=== PATIENT | male | born 1965 | race Caucasian/White ===

== ENCOUNTER 2016-12-07 09:12 | Inpatient (IN) | payer OTHER ==
[~2016-12-07] VITALS: Ht 175.3 cm; Wt 74.0 kg
[~2016-12-07 09:12] MED LIST: FLEXERIL10 MG PO; FLOMAX0.4 MG PO; MOTRIN800 MG PO; NAPROSYN500 MG PO; VICODIN 5-3001 EACH PO
[2016-12-07 09:41] LABS: HEMATOCRIT 44.7 % (38.0-50.0); MCH 27.8 PG (29.0-34.0); MCHC 33.3 G/DL (30.0-36.0); MCV 83.4 FL (86-99); MEAN PLAT.VOLUME 8.9 uM^3 (9.0-12.4); PLATELET COUNT 310 K/uL (156-360); RBC DIS.WIDTH-CV 13.1 % (11.8-14.6); RBC DIS.WIDTH-SD 39.6 % (39-53); RED BLOOD COUNT 5.36 M/uL (4.00-5.50); WHITE BLOOD COUNT 7.4 K/uL (4.1-10.2)
[2016-12-07 09:45] LABS: PROTHROMBIN TIME 11.1 SEC (10.2-12.9)
[2016-12-07 09:49] LABS: CHLORIDE 107 mEq/L (99-109); POTASSIUM 4.5 mEq/L (3.7-5.4); SODIUM 142 mEq/L (136-147)
[2016-12-07 09:51] LABS: GLUCOSE 163 mg/dL (70-99)
[2016-12-07 09:52] LABS: ANION GAP 10 MEQ/L (2-14)
[2016-12-07 09:53] LABS: TOTAL BILIRUBIN 0.7 mg/dL (0.0-1.0)
[2016-12-07 09:54] LABS: ALKALINE PHOSPHATASE 65 IU/L (3-129)
[2016-12-07 09:55] LABS: GFR ESTIMATE (CALCULATED) > 59 mL/min/
[2016-12-07 09:56] LABS: UREA NITROGEN (BUN) 17 mg/dL (9-23)
[2016-12-07 10:01] LABS: TROP-I INTERPRETATION NEGATIVE; TROPONIN-I < 0.01 ng/mL (0.0-0.30)
[2016-12-07 14:08] VITALS: BP 135/80
[2016-12-07 19:37] VITALS: BP 150/88
[2016-12-07 22:11] VITALS: BP 178/87
[2016-12-08] VITALS (7 sets, daily range): BP systolic 135–183; BP diastolic 80–110
[2016-12-08 07:28] LABS: HEMATOCRIT 45.1 % (38.0-50.0); MCH 28.3 PG (29.0-34.0); MCHC 33.9 G/DL (30.0-36.0); MCV 83.4 FL (86-99); MEAN PLAT.VOLUME 9.4 uM^3 (9.0-12.4); PLATELET COUNT 301 K/uL (156-360); RBC DIS.WIDTH-CV 13.2 % (11.8-14.6); RED BLOOD COUNT 5.41 M/uL (4.00-5.50); WHITE BLOOD COUNT 16.4 K/uL (4.1-10.2)
[2016-12-09] VITALS (9 sets, daily range): BP systolic 140–210; BP diastolic 90–119
[2016-12-09 05:50] LABS: HEMATOCRIT 41.3 % (38.0-50.0); MCH 29.3 PG (29.0-34.0); MCHC 34.9 G/DL (30.0-36.0); MCV 84.1 FL (86-99); MEAN PLAT.VOLUME 9.3 uM^3 (9.0-12.4); PLATELET COUNT 265 K/uL (156-360); RBC DIS.WIDTH-CV 13.4 % (11.8-14.6); RBC DIS.WIDTH-SD 41.4 % (39-53); RED BLOOD COUNT 4.91 M/uL (4.00-5.50); WHITE BLOOD COUNT 14.4 K/uL (4.1-10.2)
[2016-12-09 06:12] LABS: ANION GAP 9 MEQ/L (2-14); CHLORIDE 97 MEQ/L (99-109); GFR ESTIMATE (CALCULATED) > 59 mL/min/; POTASSIUM 4.2 MEQ/L (3.7-5.4); SAMPLE HEMOLYSIS CHECK 0; SAMPLE ICTERIC CHECK 0; SAMPLE LIPEMIA CHECK 0; SODIUM 135 MEQ/L (136-147); UREA NITROGEN (BUN) 12 mg/dL (9-23)
[2016-12-09 06:14] LABS: GLUCOSE 111 mg/dL (70-99)
[2016-12-09 17:33] LABS: HEMATOCRIT 43.4 % (38.0-50.0); MCH 28.1 PG (29.0-34.0); MCHC 34.3 G/DL (30.0-36.0); MCV 81.9 FL (86-99); PLATELET COUNT 299 K/uL (156-360); RBC DIS.WIDTH-CV 13.2 % (11.8-14.6); RBC DIS.WIDTH-SD 39.4 % (39-53); WHITE BLOOD COUNT 16.3 K/uL (4.1-10.2)
[2016-12-09 18:04] LABS: ALKALINE PHOSPHATASE 64 IU/L (3-129); ANION GAP 11 MEQ/L (2-14); CHLORIDE 97 MEQ/L (99-109); GFR ESTIMATE (CALCULATED) > 59 mL/min/; GLUCOSE 101 mg/dL (70-99); POTASSIUM 3.9 MEQ/L (3.7-5.4); SAMPLE HEMOLYSIS CHECK 0; SAMPLE ICTERIC CHECK 0; SAMPLE LIPEMIA CHECK 0; SODIUM 134 MEQ/L (136-147); TOTAL BILIRUBIN 0.5 MG/DL (0.0-1.0); UREA NITROGEN (BUN) 11 mg/dL (9-23)
[2016-12-09 18:07] LABS: TROP-I INTERPRETATION NEGATIVE; TROPONIN-I < 0.01 ng/mL (0.0-0.30)
[2016-12-09 21:01] LABS: Estimated Average Glucose 114 mg/dL (70-123); HEMOGLOBIN A1c (GLYCOHEMOGLOB) 5.6 % HGB (Below 5.7)
[2016-12-10] VITALS (7 sets, daily range): BP systolic 143–180; BP diastolic 81–104
[2016-12-10 07:09] LABS: HEMATOCRIT 42.6 % (38.0-50.0); MCH 27.9 PG (29.0-34.0); MCHC 33.8 G/DL (30.0-36.0); MCV 82.4 FL (86-99); MEAN PLAT.VOLUME 9.3 uM^3 (9.0-12.4); PLATELET COUNT 292 K/uL (156-360); RBC DIS.WIDTH-CV 13.3 % (11.8-14.6); RBC DIS.WIDTH-SD 40.5 % (39-53); RED BLOOD COUNT 5.17 M/uL (4.00-5.50); WHITE BLOOD COUNT 11.6 K/uL (4.1-10.2)
[2016-12-10 07:33] LABS: ALKALINE PHOSPHATASE 58 IU/L (3-129); ANION GAP 11 MEQ/L (2-14); CHLORIDE 98 MEQ/L (99-109); GFR ESTIMATE (CALCULATED) > 59 mL/min/; GLUCOSE 108 mg/dL (70-99); POTASSIUM 3.9 MEQ/L (3.7-5.4); SAMPLE HEMOLYSIS CHECK 0; SAMPLE ICTERIC CHECK 0; SAMPLE LIPEMIA CHECK 0; SODIUM 135 MEQ/L (136-147); TOTAL BILIRUBIN 0.6 MG/DL (0.0-1.0); UREA NITROGEN (BUN) 13 mg/dL (9-23)
[2016-12-10 10:19] LABS: HEMATOCRIT 43.8 % (38.0-50.0); MCH 28.5 PG (29.0-34.0); MCHC 34.7 G/DL (30.0-36.0); MCV 82.2 FL (86-99); MEAN PLAT.VOLUME 9.6 uM^3 (9.0-12.4); PLATELET COUNT 300 K/uL (156-360); RBC DIS.WIDTH-CV 13.3 % (11.8-14.6); RED BLOOD COUNT 5.33 M/uL (4.00-5.50)
[2016-12-10 10:31] LABS: TROP-I INTERPRETATION NEGATIVE; TROPONIN-I 0.02 ng/mL (0.0-0.30)
[2016-12-11 03:32] VITALS: BP 152/88
[2016-12-11 07:15] VITALS: BP 152/108
[2016-12-11 08:00] LABS: HEMATOCRIT 41.4 % (38.0-50.0); MCH 29.1 PG (29.0-34.0); MCHC 35.5 G/DL (30.0-36.0); MCV 81.8 FL (86-99); MEAN PLAT.VOLUME 8.9 uM^3 (9.0-12.4); PLATELET COUNT 300 K/uL (156-360); RBC DIS.WIDTH-CV 13.7 % (11.8-14.6); RBC DIS.WIDTH-SD 40.3 % (39-53); RED BLOOD COUNT 5.06 M/uL (4.00-5.50); WHITE BLOOD COUNT 8.9 K/uL (4.1-10.2)
[2016-12-11 09:13] LABS: ANION GAP 8 MEQ/L (2-14); CHLORIDE 100 MEQ/L (99-109); GFR ESTIMATE (CALCULATED) > 59 mL/min/; GLUCOSE 103 mg/dL (70-99); SAMPLE HEMOLYSIS CHECK 4; SAMPLE ICTERIC CHECK 0; SAMPLE LIPEMIA CHECK 0; SODIUM 134 MEQ/L (136-147); UREA NITROGEN (BUN) 20 mg/dL (9-23)
[2016-12-11 10:47] LABS: POTASSIUM 3.3 MEQ/L (3.7-5.4)
[2016-12-11 16:09] VITALS: BP 140/100
[2016-12-11 19:33] VITALS: BP 194/105
[2016-12-11 20:18] VITALS: BP 160/100
[2016-12-12] VITALS (7 sets, daily range): BP systolic 168–178; BP diastolic 96–108
[2016-12-12 08:56] LABS: HEMATOCRIT 42.7 % (38.0-50.0); MCH 27.8 PG (29.0-34.0); MCHC 34.2 G/DL (30.0-36.0); MCV 81.2 FL (86-99); MEAN PLAT.VOLUME 8.8 uM^3 (9.0-12.4); PLATELET COUNT 316 K/uL (156-360); RBC DIS.WIDTH-CV 13.2 % (11.8-14.6); RED BLOOD COUNT 5.26 M/uL (4.00-5.50); WHITE BLOOD COUNT 8.6 K/uL (4.1-10.2)
[2016-12-12 09:14] LABS: ANION GAP 12 MEQ/L (2-14); CHLORIDE 98 MEQ/L (99-109); POTASSIUM 3.6 MEQ/L (3.7-5.4); SAMPLE HEMOLYSIS CHECK 0; SAMPLE ICTERIC CHECK 0; SAMPLE LIPEMIA CHECK 0; SODIUM 136 MEQ/L (136-147)
[2016-12-12 09:19] LABS: GFR ESTIMATE (CALCULATED) > 59 mL/min/; GLUCOSE 103 mg/dL (70-99); UREA NITROGEN (BUN) 17 mg/dL (9-23)
[2016-12-12] MEDS ORDERED: PERCOCET 5/31 TABLET PO (12:09)
[2016-12-12] MEDS ORDERED: LISINOPRIL20 MG PO (13:40)
[2016-12-12] MEDS ORDERED: AMLODIPINE BESY10 MG PO (13:40)
[2016-12-12] MEDS ORDERED: APRESOLINE25 MG PO (13:40)
[2016-12-12] MEDS ORDERED: AUGMENTIN875 MG PO (13:40)
== END 2016-12-12 14:52 | disposition home or self-care (01) | DRG 907 ==
LOC: EME → EDBD 09:12 → EME 10:32 → SDC 10:32 → 2EAST 12:00 → 2SOUTH 12:00 → ENRESERV 12:07 → 2EAST 14:10 → ENRESERV 12-08 14:05 → CANRESERV 12-08 14:05 → 2EAST 12-12 14:52
PROVIDERS: Emergency Medicine; Family Medicine; Internal Medicine; Internal Medicine Gastroenterology; Physician Assistant; Physician Assistant Surgical; Surgery
PROC: 0D9W30Z Drainage of Peritoneum with Drainage Device, Percutaneous Approach (ICD-10-PCS; principal; 2016-12-07)
PROC: 0DBN4ZZ Excision of Sigmoid Colon, Percutaneous Endoscopic Approach (ICD-10-PCS; principal; 2016-12-07)
PROC: 0D9640Z Drainage of Stomach with Drainage Device, Percutaneous Endoscopic Approach (ICD-10-PCS; 2016-12-07)
PROC: 0BH17EZ Insertion of Endotracheal Airway into Trachea, Via Natural or Artificial Opening (ICD-10-PCS; 2016-12-07)
PROC: 5A1935Z Respiratory Ventilation, Less than 24 Consecutive Hours (ICD-10-PCS; 2016-12-07)
DX: K91.71 Accidental puncture and laceration of a digestive system organ or structure during a digestive system procedure (principal); K65.8 Other peritonitis; Y83.8 Other surgical procedures as the cause of abnormal reaction of the patient, or of later complication, without mention of misadventure at the time of the procedure; Y82.8 Other medical devices associated with adverse incidents; Y92.538 Other ambulatory health services establishments as the place of occurrence of the external cause; I16.0 Hypertensive urgency; I10 Essential (primary) hypertension; F12.90 Cannabis use, unspecified, uncomplicated; K66.8 Other specified disorders of peritoneum; E87.1 Hypo-osmolality and hyponatremia; G89.29 Other chronic pain; Z87.442 Personal history of urinary calculi; Z80.0 Family history of malignant neoplasm of digestive organs
CPT/HCPCS: 71010; 74000; 74020; 80048; 80053; 80069; 83036; 83605; 84484; 84999; 85027; 85610; 86850; 86900; 86901; 88305; 93005; 94002; 94799; 99281; 99285; G0378; J0131; J0360; J1170; J1885; J2270; J2405; J2543; J2704; J2710; J3010; J7030; J7050; J7120; S0030

== ENCOUNTER 2017-07-04 01:33 | Emergency (ER) | payer OTHER ==
[~2017-07-04] VITALS: Ht 175.3 cm; Wt 74.7 kg
[~2017-07-04 01:33] MED LIST changes: +AMLODIPINE BESY10 MG PO; +APRESOLINE25 MG PO; +AUGMENTIN875 MG PO; +LISINOPRIL20 MG PO; +PERCOCET 5/31 TABLET PO
[2017-07-04] MEDS ORDERED: NAPROSYN500 MG PO (02:11)
[2017-07-04 02:19] VITALS: BP 115/68
== END 2017-07-04 02:30 | disposition home or self-care (01) ==
LOC: EME → EDBD 01:33 → EME 02:30
DX: S86.911A Strain of unspecified muscle(s) and tendon(s) at lower leg level, right leg, initial encounter (principal); Y04.0XXA Assault by unarmed brawl or fight, initial encounter; Y92.89 Other specified places as the place of occurrence of the external cause; Y99.0 Civilian activity done for income or pay
CPT/HCPCS: 73564; 99281; 99283